=== PATIENT | male | born 1950 | race Caucasian/White ===

== ENCOUNTER 2016-05-19 20:13 | Inpatient (IN) | payer MEDICARE, BC ==
[~2016-05-19 20:13] MED LIST: ALDACTONE50 M1 PO; ALIGN4 M1 PO; ARICEPT5 M1 PO; ASPIRIN EC81 MG PO; BACTRIM DS TAB1 EAC2 PO; INVANZ1 GM IV; LASIX20 M1 PO; LIPITOR40 M1 PO; NAMENDA10 M1 PO; PRIMIDONE50 M1 PO; PRINIVIL5 M1 PO; PROPRANOLOL HCL10 M1 PO; TRADJENTA5 M1 PO; TRESIBA FL200 UNIT/1 SC; VITAMIN D31000 UNI3 PO
[2016-05-19 21:34] LABS: INR 1.2 INR (0.9-1.1); PROTHROMBIN TIME 14.5 SECONDS (9.0-13.6)
[2016-05-19 21:35] LABS: BASO % 0.2 % (0-2); EOS % 2.2 % (0-7); EOSINOPHIL ABSOLUTE COUNT 0.2 tho/cmm (0.0-0.7); HCT-HEMATOCRIT 25.3 % (36.0-53.5); HGB-HEMOGLOBIN 8.3 gm/dl (13.5-17.0); IMMATURE GRANULOCYTES ABSOLUTE 0.01 tho/cmm (0-0.03); IMMATURE GRANULOCYTES PERCENT 0.1 % (0-0.3); LYMPH % 16.3 % (20-45); LYMPH ABSOLUTE COUNT 1.4 tho/cmm (0.8-4.5); MCH (MEAN CORPUSCULAR HGB) 32.8 pg (28.0-32.0); MCHC MEAN CORPUSCULAR HGB CONC 32.8 % (32.0-36.0); MEAN PLATELET VOLUME 10.1 cmc (9.4-12.4); MONO % 10.6 % (0-12); MONOCYTE ABSOLUTE COUNT 0.9 tho/cmm (0.0-1.2); NEUTROPHIL ABSOLUTE COUNT 5.9 tho/cmm (1.6-8.0); NEUTROPHIL-AUTOMATED 5.9 tho/cmm (1.6-8.0); NEUTROPHILS % 70.6 % (40-80); PLATELET COUNT 115 tho/cmm (150-450); RED BLOOD COUNT 2.53 mil/cmm (4.40-5.70); RED CELL DISTRIBUTION WIDTH 15.5 % (12.4-16.4); WHITE BLOOD COUNT 8.3 tho/cmm (4.0-10.0)
[2016-05-19 21:52] LABS: ALB/GLOB RATIO 0.7 (0.8-2.0); ALBUMIN 2.7 g/dl (3.5-5.0); ALKALINE PHOSPHATASE 232 U/L (33-138); ALT/SGPT 114 U/L (12-78); ANION GAP 13 mmol/L (0-20); AST/SGOT 173 U/L (10-40); BLOOD UREA NITROGEN 56 mg/dl (6-24); CARBON DIOXIDE-VENOUS 22 mmol/L (22-32); CHLORIDE 110 mmol/l (96-110); CREATININE 1.66 mg/dl (0.60-1.30); GLUCOSE 193 mg/dL (70-110); LIPASE 215 U/L (73-393); MAGNESIUM 2.7 mg/dl (1.3-2.6); POTASSIUM 4.5 mmol/L (3.7-5.1); SODIUM 140 mmol/L (135-145); eGFR VALUE FOR BLACK 49 mL/Min
[2016-05-20 00:08] LABS: URINE BILIRUBIN NEGATIVE (NEG); URINE BLOOD NEGATIVE (NEG); URINE GLUCOSE (UA) NEGATIVE (NEG); URINE KETONE NEGATIVE (NEG); URINE LEUKOCYTE ESTERASE NEGATIVE (NEG); URINE NITRITE NEGATIVE (NEG); URINE PROTEIN NEGATIVE (NEG)
[2016-05-20 00:17] LABS: URINE APPEARANCE CLEAR; URINE COLOR BROWN
[2016-05-20 01:22] LABS: PROCALCITONIN 0.26 ng/ml (0.05-0.09)
[2016-05-20 01:30] LABS: CKMB 7.3 ng/ml (<3.6)
[2016-05-20 05:43] LABS: BASO % 0.2 % (0-2); EOS % 3.6 % (0-7); EOSINOPHIL ABSOLUTE COUNT 0.2 tho/cmm (0.0-0.7); HGB-HEMOGLOBIN 7.5 gm/dl (13.5-17.0); LYMPH % 27.6 % (20-45); LYMPH ABSOLUTE COUNT 1.8 tho/cmm (0.8-4.5); MCH (MEAN CORPUSCULAR HGB) 32.5 pg (28.0-32.0); MCV (MEAN CELL VOLUME) 98.3 fl (82.0-96.0); MEAN PLATELET VOLUME 9.7 cmc (9.4-12.4); MONO % 11.5 % (0-12); MONOCYTE ABSOLUTE COUNT 0.7 tho/cmm (0.0-1.2); NEUTROPHIL ABSOLUTE COUNT 3.7 tho/cmm (1.6-8.0); NEUTROPHIL-AUTOMATED 3.7 tho/cmm (1.6-8.0); NEUTROPHILS % 57.1 % (40-80); PLATELET COUNT 89 tho/cmm (150-450); RED BLOOD COUNT 2.31 mil/cmm (4.40-5.70); RED CELL DISTRIBUTION WIDTH 15.5 % (12.4-16.4); WHITE BLOOD COUNT 6.4 tho/cmm (4.0-10.0)
[2016-05-20 05:54] LABS: ANION GAP 9 mmol/L (0-20); BLOOD UREA NITROGEN 50 mg/dl (6-24); CALCIUM 7.5 mg/dl (8.5-10.5); CARBON DIOXIDE-VENOUS 24 mmol/L (22-32); CHLORIDE 112 mmol/l (96-110); CREATININE 1.37 mg/dl (0.60-1.30); POTASSIUM 4.1 mmol/L (3.7-5.1); SODIUM 141 mmol/L (135-145); eGFR VALUE FOR BLACK 62 mL/Min
[2016-05-20 06:16] LABS: HCT-HEMATOCRIT 22.7 % (36.0-53.5)
[2016-05-20 06:44] LABS: GLUCOSE 53 mg/dL (70-110)
[2016-05-21 05:55] LABS: BASO % 0.3 % (0-2); EOS % 4.3 % (0-7); EOSINOPHIL ABSOLUTE COUNT 0.3 tho/cmm (0.0-0.7); HCT-HEMATOCRIT 24.7 % (36.0-53.5); HGB-HEMOGLOBIN 8.1 gm/dl (13.5-17.0); IMMATURE GRANULOCYTES ABSOLUTE 0.01 tho/cmm (0-0.03); IMMATURE GRANULOCYTES PERCENT 0.2 % (0-0.3); LYMPH % 25.9 % (20-45); LYMPH ABSOLUTE COUNT 1.6 tho/cmm (0.8-4.5); MCH (MEAN CORPUSCULAR HGB) 32.8 pg (28.0-32.0); MCHC MEAN CORPUSCULAR HGB CONC 32.8 % (32.0-36.0); MEAN PLATELET VOLUME 8.8 cmc (9.4-12.4); MONO % 14.5 % (0-12); MONOCYTE ABSOLUTE COUNT 0.9 tho/cmm (0.0-1.2); NEUTROPHIL ABSOLUTE COUNT 3.3 tho/cmm (1.6-8.0); NEUTROPHIL-AUTOMATED 3.3 tho/cmm (1.6-8.0); NEUTROPHILS % 54.8 % (40-80); PLATELET COUNT 96 tho/cmm (150-450); RED BLOOD COUNT 2.47 mil/cmm (4.40-5.70); RED CELL DISTRIBUTION WIDTH 15.5 % (12.4-16.4)
[2016-05-21 06:20] LABS: ALB/GLOB RATIO 0.6 (0.8-2.0); ALBUMIN 2.3 g/dl (3.5-5.0); ALKALINE PHOSPHATASE 233 U/L (33-138); ALT/SGPT 96 U/L (12-78); ANION GAP 11 mmol/L (0-20); AST/SGOT 126 U/L (10-40); BILIRUBIN,DIRECT 0.4 mg/dl (0.0-0.3); BILIRUBIN,INDIRECT 0.4 mg/dL (0.0-1.0); BILIRUBIN,TOTAL 0.8 mg/dl (0.0-1.5); BLOOD UREA NITROGEN 41 mg/dl (6-24); CALCIUM 7.6 mg/dl (8.5-10.5); CARBON DIOXIDE-VENOUS 23 mmol/L (22-32); CHLORIDE 113 mmol/l (96-110); CREATININE 1.37 mg/dl (0.60-1.30); POTASSIUM 4.4 mmol/L (3.7-5.1); SODIUM 143 mmol/L (135-145); eGFR VALUE FOR BLACK 62 mL/Min
[2016-05-21 06:21] LABS: CREATINE PHOSPHOKINASE (CPK) 182 U/L (35-232); GLUCOSE 104 mg/dL (70-110)
[2016-05-23 08:31] LABS: BASO % 0.3 % (0-2); EOS % 4.7 % (0-7); EOSINOPHIL ABSOLUTE COUNT 0.3 tho/cmm (0.0-0.7); HGB-HEMOGLOBIN 7.9 gm/dl (13.5-17.0); IMMATURE GRANULOCYTES ABSOLUTE 0.02 tho/cmm (0-0.03); IMMATURE GRANULOCYTES PERCENT 0.3 % (0-0.3); LYMPH % 26.8 % (20-45); LYMPH ABSOLUTE COUNT 1.7 tho/cmm (0.8-4.5); MCH (MEAN CORPUSCULAR HGB) 33.3 pg (28.0-32.0); MEAN PLATELET VOLUME 9.3 cmc (9.4-12.4); MONO % 8.5 % (0-12); MONOCYTE ABSOLUTE COUNT 0.5 tho/cmm (0.0-1.2); NEUTROPHIL ABSOLUTE COUNT 3.8 tho/cmm (1.6-8.0); NEUTROPHIL-AUTOMATED 3.8 tho/cmm (1.6-8.0); NEUTROPHILS % 59.4 % (40-80); PLATELET COUNT 99 tho/cmm (150-450); RED BLOOD COUNT 2.37 mil/cmm (4.40-5.70); RED CELL DISTRIBUTION WIDTH 15.4 % (12.4-16.4); WHITE BLOOD COUNT 6.4 tho/cmm (4.0-10.0)
[2016-05-23 08:36] LABS: HCT-HEMATOCRIT 23.7 % (36.0-53.5); MCHC MEAN CORPUSCULAR HGB CONC 33.3 % (32.0-36.0)
[2016-05-23 08:48] LABS: ALB/GLOB RATIO 0.6 (0.8-2.0); ALBUMIN 2.2 g/dl (3.5-5.0); ALKALINE PHOSPHATASE 227 U/L (33-138); ALT/SGPT 82 U/L (12-78); ANION GAP 10 mmol/L (0-20); AST/SGOT 97 U/L (10-40); BILIRUBIN,TOTAL 1.1 mg/dl (0.0-1.5); BLOOD UREA NITROGEN 38 mg/dl (6-24); CALCIUM 7.8 mg/dl (8.5-10.5); CARBON DIOXIDE-VENOUS 24 mmol/L (22-32); CHLORIDE 109 mmol/l (96-110); CREATININE 1.29 mg/dl (0.60-1.30); GLUCOSE 133 mg/dL (70-110); POTASSIUM 4.3 mmol/L (3.7-5.1); SODIUM 139 mmol/L (135-145); eGFR VALUE FOR BLACK 67 mL/Min
[2016-09-01] MEDS ORDERED: ALDACTONE25 M1 PO (09:53)
[2016-09-01] MEDS ORDERED: ENULOSE10 GM/151 PO (09:56)
[2016-09-01] MEDS ORDERED: NEURONTIN100 M1 PO (09:56)
[2016-09-01] MEDS ORDERED: MIDODRINE HCL10 M1 PO (09:57)
[2016-09-01] MEDS ORDERED: NOVOLOG FL100 UNIT/2 SC (09:57)
[2016-09-01] MEDS ORDERED: PROTONIX40 M2 PO (09:58)
[2016-09-01] MEDS ORDERED: NYSTATIN100000 UNI SSW (09:58)
[2016-09-01] MEDS ORDERED: PRENATAL-U CAPS1 CAP PO (09:58)
[2016-09-01] MEDS ORDERED: BISCOLAX10 MG PR (09:59)
[2016-09-01] MEDS ORDERED: MILK OF MAGNESIA PO (09:59)
[2016-09-01] MEDS ORDERED: FLOMAX0.4 M1 PO (09:59)
[2016-09-01] MEDS ORDERED: CALMOSEPTINE O3.5 G1 TP (10:00)
[2016-09-15] MEDS ORDERED: METAMUCIL0.52 G1 PO (09:06)
[2016-09-15] MEDS ORDERED: NOVOLOG100 UNITS/ SC (09:09)
[2016-09-29] MEDS ORDERED: CRANBERRY500 M2 PO (09:06)
[2016-09-29] MEDS ORDERED: FIBER LAXATIV0.52 GM PO (09:07)
== END 2016-05-23 13:40 | DRG 863 ==
LOC: EDMED 20:13 → EMR2 05-20 00:37 → CAR1 05-20 01:04
PROVIDERS: Family Medicine; Nurse Practitioner; Physician Assistant; Registered Nurse; ADMIT Internal Medicine
DX: T81.4XXA Infection following a procedure, initial encounter (principal); N17.9 Acute kidney failure, unspecified; L89.150 Pressure ulcer of sacral region, unstageable; E11.40 Type 2 diabetes mellitus with diabetic neuropathy, unspecified; E11.621 Type 2 diabetes mellitus with foot ulcer; A04.7 Enterocolitis due to Clostridium difficile; D69.6 Thrombocytopenia, unspecified; E11.649 Type 2 diabetes mellitus with hypoglycemia without coma; F03.90 Unspecified dementia, unspecified severity, without behavioral disturbance, psychotic disturbance, mood disturbance, and anxiety; D64.9 Anemia, unspecified; E11.319 Type 2 diabetes mellitus with unspecified diabetic retinopathy without macular edema; E11.65 Type 2 diabetes mellitus with hyperglycemia; E78.5 Hyperlipidemia, unspecified; I10 Essential (primary) hypertension; I25.10 Atherosclerotic heart disease of native coronary artery without angina pectoris; I87.2 Venous insufficiency (chronic) (peripheral); I87.8 Other specified disorders of veins; I95.9 Hypotension, unspecified; K52.9 Noninfective gastroenteritis and colitis, unspecified; K75.81 Nonalcoholic steatohepatitis (NASH); N18.9 Chronic kidney disease, unspecified; R29.6 Repeated falls; R62.7 Adult failure to thrive; S91.001A Unspecified open wound, right ankle, initial encounter
CPT/HCPCS: G8978-GP-CJ; G8979-GP-CJ; J1815; J7030

== ENCOUNTER 2016-07-20 07:14 | Day surgery (SDC) | payer MEDICARE, BC ==
[2016-07-20 08:06] LABS: BASO % 0.7 % (0-2); EOS % 3.3 % (0-7); EOSINOPHIL ABSOLUTE COUNT 0.2 tho/cmm (0.0-0.7); HCT-HEMATOCRIT 27.3 % (36.0-53.5); HGB-HEMOGLOBIN 8.9 gm/dl (13.5-17.0); LYMPH % 15.1 % (20-45); LYMPH ABSOLUTE COUNT 0.8 tho/cmm (0.8-4.5); MCHC MEAN CORPUSCULAR HGB CONC 32.6 % (32.0-36.0); MCV (MEAN CELL VOLUME) 95.1 fl (82.0-96.0); MEAN PLATELET VOLUME 10.2 cmc (9.4-12.4); MONO % 13.1 % (0-12); MONOCYTE ABSOLUTE COUNT 0.7 tho/cmm (0.0-1.2); NEUTROPHIL ABSOLUTE COUNT 3.7 tho/cmm (1.6-8.0); NEUTROPHIL-AUTOMATED 3.7 tho/cmm (1.6-8.0); NEUTROPHILS % 67.8 % (40-80); PLATELET COUNT 165 tho/cmm (150-450); RED BLOOD COUNT 2.87 mil/cmm (4.40-5.70); RED CELL DISTRIBUTION WIDTH 15.7 % (12.4-16.4); WHITE BLOOD COUNT 5.4 tho/cmm (4.0-10.0)
[2016-07-20 08:16] LABS: INR 1.1 INR (0.9-1.1); PROTHROMBIN TIME 13.3 SECONDS (9.0-13.6)
[2016-07-20 08:31] LABS: ALB/GLOB RATIO 0.8 (0.8-2.0); ALBUMIN 3.1 g/dl (3.5-5.0); ALKALINE PHOSPHATASE 317 U/L (33-138); ALT/SGPT 52 U/L (12-78); ANION GAP 14 mmol/L (0-20); AST/SGOT 74 U/L (10-40); BLOOD UREA NITROGEN 24 mg/dl (6-24); CALCIUM 8.5 mg/dl (8.5-10.5); CARBON DIOXIDE-VENOUS 20 mmol/L (22-32); CHLORIDE 111 mmol/l (96-110); CREATININE 1.41 mg/dl (0.60-1.30); GLUCOSE 152 mg/dL (70-110); POTASSIUM 4.4 mmol/L (3.7-5.1); SODIUM 141 mmol/L (135-145); eGFR VALUE FOR BLACK 60 mL/Min
[2016-07-20] MEDS ORDERED: BISCOLAX10 MG PR (08:31)
[2016-07-20] MEDS ORDERED: MIDODRINE HCL5 M1 PO (08:31)
[2016-07-20] MEDS ORDERED: NOVOLOG100 UNITS/ SC (08:32)
[2016-07-20 08:33] LABS: BILIRUBIN,TOTAL 0.7 mg/dl (0.0-1.5)
[2016-07-20] MEDS ORDERED: LEVEMIR100 UNITS/ SC (08:33)
[2016-07-20 15:12] LABS: BODY FLUID APPEARANCE CLEAR (CLEAR); BODY FLUID TYPE ASCITIC FLUID; BODY FLUID VOLUME 1000 ml
[2016-07-20 15:13] LABS: BODY FLUID COLOR YELLOW (COLORLESS); BODY FLUID RBC COUNT <1000 cmm (0); BODY FLUID WBC COUNT 108 cmm
[2016-07-20 15:45] LABS: BODY FLUID LYMPHOCYTES 36 %; BODY FLUID MACROPHAGES 52 %; BODY FLUID MESOTHELIAL CELLS 1 %; BODY FLUID NEUTROPHILS 11 %
[2016-09-01] MEDS ORDERED: ALDACTONE25 M1 PO (09:53)
[2016-09-01] MEDS ORDERED: NEURONTIN100 M1 PO (09:56)
[2016-09-01] MEDS ORDERED: ENULOSE10 GM/151 PO (09:56)
[2016-09-01] MEDS ORDERED: NOVOLOG FL100 UNIT/2 SC (09:57)
[2016-09-01] MEDS ORDERED: MIDODRINE HCL10 M1 PO (09:57)
[2016-09-01] MEDS ORDERED: NYSTATIN100000 UNI SSW (09:58)
[2016-09-01] MEDS ORDERED: PRENATAL-U CAPS1 CAP PO (09:58)
[2016-09-01] MEDS ORDERED: PROTONIX40 M2 PO (09:58)
[2016-09-01] MEDS ORDERED: FLOMAX0.4 M1 PO (09:59)
[2016-09-01] MEDS ORDERED: BISCOLAX10 MG PR (09:59)
[2016-09-01] MEDS ORDERED: MILK OF MAGNESIA PO (09:59)
[2016-09-01] MEDS ORDERED: CALMOSEPTINE O3.5 G1 TP (10:00)
[2016-09-15] MEDS ORDERED: METAMUCIL0.52 G1 PO (09:06)
[2016-09-15] MEDS ORDERED: NOVOLOG100 UNITS/ SC (09:09)
[2016-09-29] MEDS ORDERED: CRANBERRY500 M2 PO (09:06)
[2016-09-29] MEDS ORDERED: FIBER LAXATIV0.52 GM PO (09:07)
== END 2016-07-20 12:30 ==
LOC: US 07:14 → SHSC 07:15
PROVIDERS: Internal Medicine Gastroenterology; Radiology Diagnostic Radiology
PROC: 0W9G3ZZ Drainage of Peritoneal Cavity, Percutaneous Approach (ICD-10-PCS; principal; 2016-07-20)
DX: R18.8 Other ascites (principal); K74.60 Unspecified cirrhosis of liver; K76.6 Portal hypertension; I85.11 Secondary esophageal varices with bleeding; E11.9 Type 2 diabetes mellitus without complications; E78.5 Hyperlipidemia, unspecified; Z86.010 Personal history of colon polyps; Z90.49 Acquired absence of other specified parts of digestive tract; Z95.1 Presence of aortocoronary bypass graft; Z98.41 Cataract extraction status, right eye; Z98.42 Cataract extraction status, left eye; Z98.890 Other specified postprocedural states
CPT/HCPCS: C1729; J7030; P9047